=== PATIENT | female | born 1970 | race Caucasian/White ===

== ENCOUNTER → 2023-07-20 | Outpatient (CLI) | payer OTHER ==
--- NOTE | 2023-07-21 19:36 | MM ---
Reason for Exam: Screening (asymptomatic). Last mammogram was performed 2 year(s) and 7 month(s) ago. Patient History: Menarche at age 12. First Full-Term at age 27. Perimenopausal. Patient has history of breast feeding. Last menstrual period: 06/29/2023 Risk Values: Julia 5 year model risk: 1.3%. NCI Lifetime model risk: 9.3%. Prior Study Comparison: 10/02/2018 Bilateral MG 3D screening mammo w/cad, Unknown. 11/02/2019 Bilateral MG 3D screening mammo w/cad, Unknown. 12/01/2020 Bilateral MG 3D screening mammo w/cad, Unknown. Tissue Density: The breast tissue is heterogeneously dense. This may lower the sensitivity of mammography. Findings: Analyzed By CAD. Microclip left breast from prior biopsy. There is no suspicious group of microcalcifications or new suspicious mass in either breast. Overall Assessment: Benign, BI-RAD 2 Management: Screening Mammogram of both breasts in 1 year. . Patient should continue monthly self-breast exams. A clinical breast exam by your physician is recommended on an annual basis. This exam should not preclude additional follow-up of suspicious palpable abnormalities. Note on Julia scores and lifetime risk: 1. A Julia score greater than 3% is considered moderate risk. If this is the case, consider specialist referral to assess eligibility for a risk reducing agent. 2. If overall lifetime risk for the development of breast cancer is 20% or higher, the patient may qualify for future screening with alternating mammogram and breast MRI. Electronically signed and approved by: Matt Gunderson M.D. Radiologist
== END | disposition home or self-care (01) ==
LOC: RADMAMWWP 08:05
PROVIDERS: ATTEND Obstetrics & Gynecology
DX: Z12.31 Encounter for screening mammogram for malignant neoplasm of breast (principal)
CPT/HCPCS: 77063; 77067

== ENCOUNTER 2024-06-12 10:37 | Emergency (ER) | payer OTHER ==
[2024-06-12 10:43] VITALS: RESP 18
--- NOTE | 2024-06-12 11:00 | ED ---
General Adult HPI - General Chief complaint: Head Injury Stated complaint: Fall-head injury Time Seen by Provider: 06/12/24 10:44 Source: patient, RN notes reviewed Mode of arrival: ambulatory Limitations: no limitations - History of Present Illness Initial comments: This is a 54-year-old female no significant medical history presenting to the emergency department for complaint of a headache after head injury that occurred yesterday. She was walking outside when she slipped on the ice causing her feet to come out from underneath her striking the back of her head on the ground. She denies loss of consciousness at the time of the event. Patient had friend with her that witnessed the fall states that her mentation remained normal afterwards. Patient denies nausea nausea or emesis. Currently, patient states that she is experiencing what she calls a pressure of her head. Denies shaista headache. She denies feelings of nausea, blurry double vision. denies blood thinner use. denies other injuries at the time of the fall. no other acute complaints at this time. - Related Data Allergies Allergy/AdvReac Type Severity Reaction Status Date / Time amoxicillin Allergy Rash/Hives Verified 06/12/24 10:43 Penicillins Allergy Rash/Hives Verified 06/12/24 10:43 Review of Systems ROS Statement: Those systems with pertinent positive or pertinent negative responses have been documented in the HPI. ROS Other: All systems not noted in ROS Statement are negative. Past Medical History Past Medical History: No Reported History Past Surgical History: No Surgical Hx Reported Past Psychological History: No Psychological Hx Reported Smoking Status: Never smoker Past Alcohol Use History: Occasional Past Drug Use History: None Reported General Exam Limitations: no limitations Eye exam: Present: normal appearance, PERRL, EOMI. Absent: scleral icterus, conjunctival injection, periorbital swelling Neck exam: Present: normal inspection. Absent: tenderness, meningismus, lympha denopathy Respiratory exam: Present: normal lung sounds bilaterally. Absent: respiratory distress, wheezes, rales, rhonchi, stridor Cardiovascular Exam: Present: regular rate, normal rhythm, normal heart sounds. Absent: systolic murmur, diastolic murmur, rubs, gallop, clicks GI/Abdominal exam: Present: soft, normal bowel sounds. Absent: distended, tenderness, guarding, rebound, rigid Extremities exam: Present: normal inspection, full ROM, normal capillary refill. Absent: tenderness, pedal edema, joint swelling, calf tenderness Back exam: Present: normal inspection Neurological exam: Present: alert, oriented X3, CN II-XII intact Course Vital Signs 06/12/24 06/12/24 10:38 12:05 Temperature 97.2 F L 97.9 F Pulse Rate 68 86 Respiratory 18 18 Rate Blood Pressure 169/84 153/81 O2 Sat by Pulse 100 100 Oximetry Medical Decision Making - Medical Decision Making Was pt. sent in by a medical professional or institution (, MICHAEL, SOLDERING MACHINE TENDER, urgent care, hospital, or long-term...) When possible be specific @ -No Did you speak to anyone other than the patient for history (EMS, parent, family, police, friend...)? What history was obtained from this source @ -No Did you review nursing and triage notes (agree or disagree)? Why? @ -I reviewed and agree with nursing and triage notes Were old charts reviewed (outside hosp., previous admission, EMS record, old EKG, old radiological studies, urgent care reports/EKG's, long-term records)? Report findings @ -No old charts were reviewed Differential Diagnosis (chest pain, altered mental status, abdominal pain women, abdominal pain men, vaginal bleeding, weakness, fever, dyspnea, syncope, headache, dizziness, GI bleed, back pain, seizure, CVA, palpatations, mental health, musculoskeletal)? @ -Differential Headache: Migraine, tension, cluster, carbon monoxide, central venous thrombosis, pension karma temporal arteritis, acute closure glaucoma, intercranial hemorrhage, mastoiditis, sinusitis, head injury, this is not meant to be an all-inclusive list. EKG interpreted by me (3pts min.). @ -None X-rays interpreted by me (1pt min.). @ -None done CT interpreted by me (1pt min.). @ -CT brain and C-spine without contrast no acute fracture or dislocation cervical spine with no acute intracranial hemorrhage of the brain U/S interpreted by me (1pt. min.). @ -None done What testing was considered but not performed or refused? (CT, X-rays, U/S, labs)? Why? @ -None What meds were considered but not given or refused? Why? @ -None Did you discuss the management of the patient with other professionals (professionals i.e. , MICHAEL, SOLDERING MACHINE TENDER, lab, RT, psych nurse, delinquency prevention social worker, lamp cleaner street light, teacher, sewage reticulation drafting officer, case liner)? Give summary @ -No Was smoking cessation discussed for >3mins.? @ -No Was critical care preformed (if so, how long)? @ -No Were there social determinants of health that impacted care today? How? (Homelessness, low income, unemployed, alcoholism, drug addiction, transportation, low edu. Level, literacy, decrease access to med. care, shelter, rehab)? @ -No Was there de-escalation of care discussed even if they declined (Discuss DNR or withdrawal of care, Hospice)? DNR status @ -No What co-morbidities impacted this encounter? (DM, HTN, Smoking, COPD, CAD, Cancer, CVA, ARF, Chemo, Hep., AIDS, mental health diagnosis, sleep apnea, morbid obesity)? @ -None Was patient admitted / discharged? Hospital course, mention meds given and route, prescriptions, significant lab abnormalities, going to OR and other pertinent info. @ -Discharge. 54-year-old female presenting with head pressure after headache that occurred yesterday. Neurological examination unremarkable. pain medication was offered but declined. CT of the brain and C-spine unremarkable for acute intracranial cervical spine process. Concussion care discussed with patient at bedside. discussed with Dr. Street Undiagnosed new problem with uncertain prognosis? @ -No Drug Therapy requiring intensive monitoring for toxicity (Heparin, Nitro, Insulin, Cardizem)? @ -No Were any procedures done? @ -No Diagnosis/symptom? @ -concussion, head injury Acute, or Chronic, or Acute on Chronic? @ -acute Uncomplicated (without systemic symptoms) or Complicated (systemic symptoms)? @ -uncomplicated Side effects of treatment? @ -No Exacerbation, Progression, or Severe Exacerbation? @ -No Poses a threat to life or bodily function? How? (Chest pain, [place], [place], pneumonia, PE, COPD, DKA, ARF, appy, cholecystitis, CVA, Diverticulitis, Homicidal, Suicidal, threat to staff... and all critical care pts) @ -No Disposition Clinical Impression: Head injury, Concussion Disposition: HOME SELF-CARE Condition: Good Instructions (If sedation given, give patient instructions): Concussion (ED) Additional Instructions: Please return to the Emergency Department if symptoms worsen or any other concerns. Is patient prescribed a controlled substance at d/c from ED?: No Referrals: [facility] [NON-STAFF] - As Soon As Possible (Contact office to become established with a primary care provider. ) None,Stated [Primary Care Provider] - 1-2 days Forms: Area PCPs Time of Disposition: 11:56
--- NOTE | 2024-06-12 11:54 | CT ---
EXAMINATION TYPE: CT brain cspine wo con DATE OF EXAM: 06/12/2024 COMPARISON: NONE HISTORY: fell yesterday/pain today CT DLP: 1433.3 mGycm. Automated Exposure Control for Dose Reduction was Utilized. TECHNIQUE: CT scan of the head and cervical spine are performed without contrast. FINDINGS: There is no acute intracranial hemorrhage, mass effect, or midline shift identified. The ventricles and sulci are within normal limits in size. Harrison-white matter differentiation is maintain ed. The calvarium is intact. The globes are intact and the visualized sinuses are clear. Cervical spine is visualized in its entirety from C1 through upper thoracic levels and demonstrates s atisfactory alignment without evidence of acute fracture or dislocation. Prevertebral soft tissue ap pears within normal limits. The C1-C2 articulation is within normal limits on the coronal images. Ve rtebral body heights are preserved. There is mild to moderate spurring and disc space narrowing at C5 -C6 and C6-C7 levels. Thyroid gland appears within normal limits. Lung apices show mild to moderate p leural/parenchyma scarring bilaterally but no pneumothorax. IMPRESSION: 1. There is no acute fracture or dislocation evident in the cervical spine. 2. No acute intracranial hemorrhage, mass effect, or midline shift is seen. [facility], , 06/12/2024 11:52 AM
[2024-06-12 12:07] VITALS: BP 153/81; PULSE 86; TEMP 97.9
== END 2024-06-12 12:06 | disposition home or self-care (01) ==
LOC: EC 10:37
DX: S06.0XAA Concussion with loss of consciousness status unknown, initial encounter (principal); Z88.0 Allergy status to penicillin; W00.0XXA Fall on same level due to ice and snow, initial encounter; Y93.01 Activity, walking, marching and hiking
CPT/HCPCS: 70450; 72125; 99283

== ENCOUNTER → 2024-12-12 | Outpatient (CLI) | payer OTHER ==
--- NOTE | 2024-12-12 08:29 | MM ---
Reason for Exam: Screening (asymptomatic). Last mammogram was performed 1 year(s) and 5 month(s) ago. Patient History: Menarche at age 12. First Full-Term at age 27. Perimenopausal. Patient has history of breast feeding. Last menstrual period: 11/14/2024 Risk Values: Julia 5 year model risk: 1.3%. NCI Lifetime model risk: 9.1%. Prior Study Comparison: 11/02/2019 Bilateral MG 3D screening mammo w/cad, Unknown. 12/01/2020 Bilateral MG 3D screening mammo w/cad, Unknown. 07/20/2023 Bilateral MG 3D screening mammo w/cad, [facility]. Tissue Density: There are scattered areas of fibroglandular density. Findings: Analyzed By CAD. Left breast biopsy clip. Right breast: There is no suspicious group of microcalcifications or new suspicious mass. Left breast: There is no suspicious group of microcalcifications or new suspicious mass. Overall Assessment: Benign, BI-RAD 2 Management: Screening Mammogram of both breasts in [address] [facility] will attempt to contact patient to return for supplemental views and ultrasound if indicated. Patient should continue monthly self-breast exams. A clinical breast exam by your physician is recommended on an annual basis. This exam should not preclude additional follow-up of suspicious palpable abnormalities. Note on Julia scores and lifetime risk: 1. A Julia score greater than 3% is considered moderate risk. If this is the case, consider specialist referral to assess eligibility for a risk reducing agent. 2. If overall lifetime risk for the development of breast cancer is 20% or higher, the patient may qualify for future screening with alternating mammogram and breast MRI. [facility], , 12/12/2024 8:26 AM. Electronically signed and approved by: Sung Mcclure DO
== END | disposition home or self-care (01) ==
LOC: RADMAMWWP 07:23
PROVIDERS: ATTEND Obstetrics & Gynecology
DX: Z12.31 Encounter for screening mammogram for malignant neoplasm of breast (principal); R92.323 Mammographic fibroglandular density, bilateral breasts
CPT/HCPCS: 77063; 77067